=== PATIENT | female | born 1950 | race Caucasian/White ===

== ENCOUNTER 2019-02-01 11:04 | Emergency (ER) | payer MEDICARE, MEDICAID ==
[~2019-02-01] VITALS: Ht 154.9 cm; Wt 40.0 kg
[~2019-02-01 11:04] MED LIST: ACET-812 PO; ALBU18HF2 IH; ALBU18HF2 INH; ALEN70TA60 PO; ASPI-1009 PO; BACL20TA PO; BUPR150T26 PO; CALC260T6 PO; CHOL10002 PO; CLON-527 PO; DIVA500T4 PO; EPIN0.3P3 IM; LUBI8CAP PO; PANT-47 PO; POTA2TAB6 PO; SENN17.26 PO; SUVO5TAB; TOPI25TA15 PO
--- NOTE | 2019-02-01 12:06 | NUR ---
PT POA [phone] CORIN GRIGGS DAUGHTER SG BARAJAS [phone]
[2019-02-01 12:27] LABS: CLARITY,URINE SLIGHTLY CLOUDY (Clear); COLOR,URINE YELLOW (Yellow); GLUCOSE, URINE NEGATIVE (Neg); KETONES,URINE 15 mg/dl (Neg); LEUKOCYTE ESTERASE ,URINE NEGATIVE (Neg); NITRITES, URINE NEGATIVE (Neg); OCCULT BLOOD,URINE SMALL (Neg); PH,URINE 5.5 (4.8-8.0); PROTEIN,URINE TRACE mg/dl (Neg); UROBILINOGEN,URINE 0.2 E.U/dL (0.2-1.0)
[2019-02-01 12:29] LABS: UA COLLECTION TYPE STRAIGHT CATH; URINE AMPHETAMINE SCREEN NEGATIVE (Neg); URINE BARBITUATE SCREEN NEGATIVE (Neg); URINE BENZODIAZEPINES SCREEN NEGATIVE (Neg); URINE CANNABINOID SCREEN NEGATIVE (Neg); URINE COCAINE SCREEN NEGATIVE (Neg); URINE METHADONE SCREEN NEGATIVE (Neg); URINE OPIATE SCREEN NEGATIVE (Neg); URINE PHENCYCLIDINE SCREEN NEGATIVE (Neg)
[2019-02-01 12:37] LABS: ALANINE AMINOTRANSFERASE 22 U/L (12-78); ALBUMIN 4.9 G/DL (3.4-5.0); ALBUMIN/GLOBULIN RATIO 1.3 (1.1-1.5); ANION GAP 19 (8-16); ASPARTATE AMINO TRANSFERASE 34 U/L (10-37); BILIRUBIN,TOTAL 0.8 MG/DL (0.1-1.0); BLOOD UREA NITROGEN 30 MG/DL (7-18); BUN/CREATININE RATIO 22.2 (6.6-38.0); CALCIUM 10.4 MG/DL (8.5-10.1); CHLORIDE 98 MMOL/L (99-107); CREATININE 1.35 MG/DL (0.40-0.90); ETHANOL < 0.010 GM/DL (0.0-0.010); GLUCOSE 86 MG/DL (70-104); POTASSIUM 4.6 MMOL/L (3.5-5.1); SODIUM 137 MMOL/L (135-145); TOTAL CARBON DIOXIDE 19.8 MMOL/L (24-32); TOTAL PROTEIN 8.7 G/DL (6.4-8.2); TROPONIN I < 0.04 NG/ML (0.0-0.05); VALPROATE 7 UG/ML (50-100); eGFR 39 ML/MIN
[2019-02-01] MEDS ORDERED: haloperidol lactate 5mg/ml inj IM ONE ×2 (12:40→23:05)
[2019-02-01] MEDS ORDERED: normal saline 1000ML IV soln IVB ONE (12:40)
--- NOTE | 2019-02-01 12:42 | NUR ---
SPOKE WITH DAUGHTER KEVAN. SHE IS ON HER WAY HERE.
[2019-02-01 12:54] LABS: BASOPHILS % (AUTO) 0.2 % (0-1); EOSINOPHILS % (AUTO) 0 % (0-6); HEMATOCRIT 41.7 % (35.0-45.0); HEMOGLOBIN 14.5 g/dl (12.0-16.0); LYMPHOCYTES # (AUTO) 0.5 X10'3 (1.1-4.8); MEAN CORPUSCULAR HEMOGLOBIN 33.3 PG (27.0-31.0); MEAN CORPUSCULAR HGB CONC 34.8 g/dL (33.0-36.5); MEAN CORPUSCULAR VOLUME 95.7 FL (78-98); MEAN PLATELET VOLUME 7.3 FL (7.4-10.4); MONOCYTES # (AUTO) 0.7 X10'3 (0-0.9); MONOCYTES % (AUTO) 6.9 % (2-12); NEUTROPHILS # (AUTO) 8.3 X10'3 (1.8-7.7); NEUTROPHILS % (AUTO) 87.9 % (42-75); PLATELET COUNT 181 X10'3 (140-440); RED BLOOD COUNT 4.36 X10'6 (4.20-5.60); RED CELL DISTRIBUTION WIDTH 13.3 % (11.5-14.5); WHITE BLOOD COUNT 9.4 X10'3 (4.5-11.0)
[2019-02-01 13:12] LABS: PARTIAL THROMBOPLASTIN TIME 23 SECONDS (22-32)
[2019-02-01 13:18] LABS: HYALINE CASTS >30 /LPF (NEGATIVE)
[2019-02-01 13:19] LABS: COARSE GRANULAR CAST 0-3 /LPF (NEGATIVE); FINE GRANULAR CAST 0-3 /LPF (NEGATIVE)
[2019-02-01 13:20] LABS: BACTERIA,URINE FEW /HPF (Neg); MUCUS STRANDS MANY /LPF (Neg); RENAL CELLS, URINE FEW /HPF; SQUAMOUS EPITHELIAL CELL,UR FEW /LPF (FEW); TRANSITIONAL EPI CELLS,URINE FEW /HPF; WBC,URINE 0-4 /HPF (0-4)
[2019-02-01 13:21] LABS: AMORPHOUS URATES 1+
[2019-02-01 13:41] LABS: ALKALINE PHOSPHATASE 61 IU/L (46-116)
--- NOTE | 2019-02-01 15:00 | NUR ---
pt came over with both daughter via wheelchair to room 22
[2019-02-01 15:31] LABS: ANION GAP 14 (8-16); BLOOD UREA NITROGEN 25 MG/DL (7-18); BUN/CREATININE RATIO 26.9 (6.6-38.0); CALCIUM 8.9 MG/DL (8.5-10.1); CHLORIDE 104 MMOL/L (99-107); CREATININE 0.93 MG/DL (0.40-0.90); GLUCOSE 75 MG/DL (70-104); POTASSIUM 4.4 MMOL/L (3.5-5.1); SODIUM 141 MMOL/L (135-145); TOTAL CARBON DIOXIDE 22.8 MMOL/L (24-32); eGFR 60 ML/MIN
[2019-02-01] MEDS ORDERED: CLON-514 PO (15:58)
[2019-02-01] MEDS ORDERED: BUPR150T6 PO (15:58)
[2019-02-01] MEDS ORDERED: BACL20TA PO (15:58)
[2019-02-01] MEDS ORDERED: TIOT4MIS5 IH (15:58)
[2019-02-01] MEDS ORDERED: LEVO50TA8 PO (15:58)
[2019-02-01] MEDS ORDERED: DIPH25CA46 PO (15:58)
[2019-02-01] MEDS ORDERED: TRAZ-251 PO (15:58)
[2019-02-01] MEDS ORDERED: DIVA-76 PO (15:58)
[2019-02-01] MEDS ORDERED: CALC-1051 PO (15:58)
[2019-02-01] MEDS ORDERED: FLUT1AER IH (15:58)
--- NOTE | 2019-02-01 16:00 | NUR ---
pt resting in bed. she says she sees bugs on the ceiling
--- NOTE | 2019-02-01 16:05 | NUR ---
FAXED [facility]
--- NOTE | 2019-02-01 17:00 | NUR ---
no change is pt condition. pt given a warm blanket
--- NOTE | 2019-02-01 19:00 | NUR ---
[facility] and neighbor at bedside.
--- NOTE | 2019-02-01 20:04 | NUR ---
Neighbor at bedside, saying goodbye.
--- NOTE | 2019-02-01 21:30 | NUR ---
Pt staring at curtain, will not advert gaze to rn unless gently shaken.
--- NOTE | 2019-02-01 22:30 | NUR ---
Pt out of bed, entered another bed area and pulled down her pants and squatted to pee. Pt quickly escorted to restroom without incident.
--- NOTE | 2019-02-01 23:30 | NUR ---
Pt continuously out of bed, increasingly anxious. New orders obtained.
--- NOTE | 2019-02-02 00:27 | NUR ---
Pt sitting on side of bed, rearranging blankets .
--- NOTE | 2019-02-02 01:30 | NUR ---
Pt resting comfortably, respirations normal, no s/s of distress.
--- NOTE | 2019-02-02 02:22 | NUR ---
Pt resting comfortably, respirations normal, no s/s of distress.
--- NOTE | 2019-02-02 02:47 | NUR ---
assumed care of patient sleeping peacefully unlabored on her left side. currently no s/s of distress.
--- NOTE | 2019-02-02 03:00 | NUR ---
Assumed care of patient from ABDIRIZAK Weaver. The patient is sleeping.
--- NOTE | 2019-02-02 05:10 | NUR ---
The patient is asleep on her right side. Respitrations are unlabored. No s/s of distress.
--- NOTE | 2019-02-02 06:27 | NUR ---
Patient sleeping on right side. No distress observed. Continue to monitor.
--- NOTE | 2019-02-02 08:20 | NUR ---
Patient sitting up and eating. No distress observed. Continue to monitor.
--- NOTE | 2019-02-02 09:10 | NUR ---
Patient's caregiver at bedside. RN gave patient warm blanket for her right leg as she is having cramps. Continue to monitor.
--- NOTE | 2019-02-02 10:50 | NUR ---
Breaking primary RN, pt is supine in bed, eyes closed, regular breathing, no s/s of distress observed
--- NOTE | 2019-02-02 12:41 | NUR ---
Patient sleeping supine. No restlessness observed. Continue to monitor.
[2019-02-02] MEDS ORDERED: clonazePAM 1mg tablet PO PRN (12:50)
[2019-02-02] MEDS ORDERED: albuterol 2.5 MG/3 ML nebule NEB PRN ×2 (12:55)
[2019-02-02] MEDS ORDERED: ipratropium 0.5 MG/2.5ML nebule IH PRN (13:00)
--- NOTE | 2019-02-02 16:26 | NUR ---
breaking primary RN, pt is laying on her left side, eyes closed, appears to be asleep, regular breathing present, will continue to monitor
--- NOTE | 2019-02-02 17:50 | NUR ---
Patient's sister with patient. No distress observed. Continue to monitor.
--- NOTE | 2019-02-02 19:14 | NUR ---
One to one with the patient to assess for the severity of mental health symptoms. She is alert and oriented. She denies feeling depressed. She reports moderate anxiety. She reports she now feels like her normal self and asked for and received hygiene items. She denies thoughts to harm herself or others. She denies psychotic symptoms and none were evident during the evening assessment. She denies racing thoughts.
[2019-02-02] MEDS: calcium carbonate/vitamin D3 tablet PO SCH (20:00)
[2019-02-02] MEDS: baclofen 10mg tablet PO SCH (20:22)
--- NOTE | 2019-02-02 20:37 | NUR ---
The patient was seen by [facility] and her hold was released. The patient's sister will come pick her up in the am. Dr. Ndiaye is aware.
--- NOTE | 2019-02-02 20:38 | NUR ---
DC to sister, Jennifer. When she is ready to leave please call her [phone] #[phone]
[2019-02-02] MEDS: budesonide 0.5mg/2ml UD nebule IH SCH (20:46)
[2019-02-02] MEDS ORDERED: traZODone 50mg tablet PO SCH (21:00)
--- NOTE | 2019-02-02 22:54 | NUR ---
The patient appears to be asleep
--- NOTE | 2019-02-03 01:18 | NUR ---
The patient appears to be sleeping well
--- NOTE | 2019-02-03 03:13 | NUR ---
The patient currently appears to be sleeping
--- NOTE | 2019-02-03 04:54 | NUR ---
The patient appears to be sleeping
--- NOTE | 2019-02-03 06:30 | NUR ---
Pt up to use the bathroom.
[2019-02-03] MEDS ORDERED: levoTHYROXINE 25mcg tablet PO SCH (07:00)
[2019-02-03] MEDS ORDERED: buproprion 150mg XL (24-hour) tablet PO SCH (08:00)
[2019-02-03] MEDS ORDERED: diphenhydrAMINE 25mg capsule PO SCH (08:00)
[2019-02-03] MEDS ORDERED: divalproex sod 125mg tablet.DR PO SCH (08:00)
[2019-02-03] MEDS: calcium carbonate/vitamin D3 tablet PO SCH (08:15)
[2019-02-03] MEDS: baclofen 10mg tablet PO SCH (08:15)
--- NOTE | 2019-02-03 08:23 | NUR ---
Pt refused her Depakote and her Benadryl as she states she takes them both at , med rec corrected.
[2019-02-03] MEDS: budesonide 0.5mg/2ml UD nebule IH SCH (09:17)
--- NOTE | 2019-02-03 10:23 | NUR ---
Pt appears to be sleeping.
--- NOTE | 2019-02-03 10:46 | NUR ---
Pt's sister Jennifer called, she is available to come and pick the pt up whenever pt has discharge orders.
--- NOTE | 2019-02-03 11:03 | NUR ---
Called sister Jennifer who will come to pick her up within the hour.
--- NOTE | 2019-02-03 12:13 | NUR ---
Pt discharged home with her sister at 1205, expressed understanding of discharge instructions/follow up care, all belongings returned, ambulated off the unit.
[2019-02-03 12:15] VITALS: BP 94/57
== END 2019-02-03 12:05 | disposition home or self-care (01) ==
LOC: ER 11:05
DX: F29 Unspecified psychosis not due to a substance or known physiological condition (principal); R41.82 Altered mental status, unspecified; F41.9 Anxiety disorder, unspecified; F31.9 Bipolar disorder, unspecified; F10.99 Alcohol use, unspecified with unspecified alcohol-induced disorder; R79.1 Abnormal coagulation profile; R00.0 Tachycardia, unspecified; Z98.890 Other specified postprocedural states; Z56.0 Unemployment, unspecified; Z60.2 Problems related to living alone; Z88.5 Allergy status to narcotic agent; Z88.6 Allergy status to analgesic agent; Z88.1 Allergy status to other antibiotic agents; Z88.8 Allergy status to other drugs, medicaments and biological substances; Y90.9 Presence of alcohol in blood, level not specified
CPT/HCPCS: 36415; 70450; 71045; 80048; 80053; 80164; 80305; 80320; 81001; 82140; 84484; 85025; 85610; 85730; 93005; 94640; 94760; 96360; 96361; 96372; 99285; J1630; J7030; P9612; Q0163; J7626

== ENCOUNTER 2021-07-19 09:40 | Emergency (ER) | payer MEDICARE, MEDICAID ==
[~2021-07-19] VITALS: Ht 160 cm; Wt 46.8 kg
[~2021-07-19 09:40] MED LIST changes: -ACET-812 PO; -ALBU18HF2 IH; -ALBU18HF2 INH; -ALEN70TA60 PO; -ASPI-1009 PO; +BUPR-317 PO; -BUPR150T26 PO; +CALC-1051 PO; -CALC260T6 PO; -CHOL10002 PO; -CLON-527 PO; +CLON1TAB96 PO; +DIPH-1055 PO; +DIVA-76 PO; -DIVA500T4 PO; -EPIN0.3P3 IM; +FLUT1AER IH; +LEVO50TA8 PO; -LUBI8CAP PO; -PANT-47 PO; -POTA2TAB6 PO; -SENN17.26 PO; -SUVO5TAB; +TIOT4MIS5 IH; -TOPI25TA15 PO; +TRAZ-251 PO
[2021-07-19] MEDS ORDERED: ibuprofen 200mg tablet PO ONE (10:10)
[2021-07-19 10:54] LABS: BASOPHILS % (AUTO) 0.6 % (0-1); EOSINOPHILS # (AUTO) 0.2 X10'3 (0-0.9); EOSINOPHILS % (AUTO) 5.3 % (0-6); HEMATOCRIT 39.2 % (35.0-45.0); HEMOGLOBIN 13.1 g/dl (12.0-16.0); LYMPHOCYTES % (AUTO) 31.3 % (21-51); MEAN CORPUSCULAR HEMOGLOBIN 31.9 PG (27.0-31.0); MEAN CORPUSCULAR HGB CONC 33.3 g/dL (33.0-36.5); MEAN CORPUSCULAR VOLUME 95.7 FL (78-98); MEAN PLATELET VOLUME 7.3 FL (7.4-10.4); MONOCYTES # (AUTO) 0.4 X10'3 (0-0.9); MONOCYTES % (AUTO) 12.1 % (2-12); NEUTROPHILS # (AUTO) 1.6 X10'3 (1.8-7.7); NEUTROPHILS % (AUTO) 50.7 % (42-75); PLATELET COUNT 146 X10'3 (140-440); RED CELL DISTRIBUTION WIDTH 13.1 % (11.5-14.5); WHITE BLOOD COUNT 3.2 X10'3 (4.5-11.0)
[2021-07-19 11:15] LABS: ALANINE AMINOTRANSFERASE 16 U/L (12-78); ALBUMIN 3.4 G/DL (3.4-5.0); ALBUMIN/GLOBULIN RATIO 1.2 (1.1-1.5); ALKALINE PHOSPHATASE 27 IU/L (46-116); ANION GAP 5 (8-16); ASPARTATE AMINO TRANSFERASE 17 U/L (10-37); BILIRUBIN,TOTAL 0.2 MG/DL (0.1-1.0); BLOOD UREA NITROGEN 17 MG/DL (7-18); BUN/CREATININE RATIO 30.9 (6.6-38.0); CALCIUM 8.2 MG/DL (8.5-10.1); CHLORIDE 108 MMOL/L (99-107); CREATININE 0.55 MG/DL (0.40-0.90); GLUCOSE 74 MG/DL (70-104); POTASSIUM 4.4 MMOL/L (3.5-5.1); SODIUM 143 MMOL/L (135-145); TOTAL CARBON DIOXIDE 29.9 MMOL/L (24-32); TOTAL PROTEIN 6.2 G/DL (6.4-8.2); eGFR > 90 ML/MIN
[2021-07-19 12:37] VITALS: BP 116/52
== END 2021-07-19 12:39 | disposition home or self-care (01) ==
LOC: ER 09:40
DX: M54.6 Pain in thoracic spine (principal); Z72.89 Other problems related to lifestyle; Z56.0 Unemployment, unspecified; Z90.10 Acquired absence of unspecified breast and nipple; Z88.8 Allergy status to other drugs, medicaments and biological substances; Z79.899 Other long term (current) drug therapy
CPT/HCPCS: 36415; 71045; 80053; 83880; 84484; 85025; 93005; 99285